=== PATIENT | male | born 1940 | race Caucasian/White ===

== ENCOUNTER 2016-10-09 10:55 | Inpatient (IN) | payer OTHER ==
[2016-06-02 12:49] VITALS: Ht 177.8 cm; Wt 62.6 kg
[~2016-10-09] VITALS: Ht 177.8 cm; Wt 62.6 kg
[2016-10-09] VITALS (7 sets, daily range): BP systolic 131–198; BP diastolic 76–126; PULSE 71–117; RESP 17–20; TEMP 97.2–98.3; O2SAT 98–100
[~2016-10-09 10:55] MED LIST: ACET-2165 PO; ALPR0.5T96 PO; ATEN100T44 PO; BACL10TA PO; BETH25TA10 PO; CAPT25TA3 PO; CAPT50TA PO; CAT.1 PO; CAT.2 PO; CYM30 PO; DOCU250C PO; FINA5TAB3 PO; GLUXR500 PO; HYDR-1189 PO; HYDR50TA3 PO; LEVO500T20 PO; METO10TA3 PO; NPH,100V; PRO40 PO; SENN-153 PO; STA120 PO; TAMS-11 PO
[2016-10-09] MEDS ORDERED: NACL 0.9% 1,000 ML IV SCH (11:27)
--- NOTE | 2016-10-09 11:27 | NUR ---
Patient to ER bed 01 to gown for evaluation. Side rails up.
[2016-10-09] MEDS ORDERED: cefTRIAXone 1 GM IVPB PREMIX 50 ML IV ONE (11:30)
--- NOTE | 2016-10-09 11:49 | NUR ---
Placed on alarm security or surveillance monitor, blood pressure machine and pulse oximeter. To gown for exam. Side rails up.
--- NOTE | 2016-10-09 11:50 | NUR ---
# 20 gauge angiocath placed to RAC. Use of asceptic technique. Opsite placed over site. Blood return noted. Blood for lab drawn from site. Flushed with 10 cc of normal saline. No evidence of infiltration noted. Patient tolerated well.
--- NOTE | 2016-10-09 11:51 | NUR ---
ER at bedside examining patient.
--- NOTE | 2016-10-09 11:52 | NUR ---
brought in by his ,per his ,pt has difficulty urination,intermittent hallucination for 3 or 4 days. pt current awake,alert,oriented x4. no neuro deficit noted. no acute distress. unable to urinate.
[2016-10-09 11:59] LABS: BASOPHILS % (AUTO) 1.3 % (0.0-2.0); EOSINOPHILS # (AUTO) 0.1 K/uL (0.0-0.4); EOSINOPHILS % (AUTO) 2.1 % (0.0-4.0); HEMOGLOBIN 14.5 g/dL (14.0-18.0); LYMPHOCYTES % (AUTO) 30.6 % (20.5-51.5); MEAN CORPUSCULAR HEMOGLOBIN 30 pg (27-31); MEAN CORPUSCULAR HGB CONC 33 % (32-36); MEAN CORPUSCULAR VOLUME 90 fL (79.0-98.0); MONOCYTES # (AUTO) 0.3 K/uL (0.0-1.0); MONOCYTES % (AUTO) 9.4 % (1.7-9.3); NEUTROPHILS # (AUTO) 1.9 K/uL (1.8-7.7); NEUTROPHILS % (AUTO) 56.6 % (40.0-70.0); PLATELET COUNT (AUTO) 170 K/uL (130-430); RED BLOOD CELL COUNT(AUTO) 4.91 MIL/uL (4.2-6.2); RED CELL DISTRIBUTION WIDTH 11.5 % (9.0-15.0); WHITE BLOOD COUNT (AUTO) 3.4 K/uL (4.8-10.8)
--- NOTE | 2016-10-09 12:02 | NUR ---
# 16 FR Nieves catheter with use of sterile technique. Immediate return of cc urine noted. Bedside drainage bag placed below level of bladder. Urine sample collected and sent to lab. Pt tolerated procedure . pt unable to urinate.
[2016-10-09 12:12] LABS: ANION GAP 3 (5-15); CALCIUM 8.7 mg/dL (8.4-11.0); CHLORIDE 100 mmol/L (98-107); CREATININE 1.03 mg/dL (0.55-1.30); GLUCOSE 167 mg/dL (70-99); POTASSIUM 3.7 mmol/L (3.5-5.1); SODIUM SERUM 137 mmol/L (136-145); UREA NITROGEN, BLOOD 15 mg/dL (8-21)
[2016-10-09 12:17] LABS: ALANINE AMINOTRANSFERASE 18 U/L (12-78); ALBUMIN 3.7 g/dL (3.4-4.8); ASPARTATE AMINOTRANSFERASE 17 U/L (10-37); TOTAL BILIRUBIN 0.9 mg/dL (0.0-1.0); TOTAL PROTEIN, SERUM 6.8 g/dL (6.4-8.3)
[2016-10-09 12:20] LABS: BILIRUBIN,URINE NEGATIVE (NEGATIVE); BLOOD, URINE 1+ (NEGATIVE); CLARITY/URINE CLEAR (CLEAR); COLOR,URINE YELLOW (YELLOW); GLUCOSE,URINE 2+ (NEGATIVE); KETONES,URINE TRACE (NEGATIVE); LEUKOCYTE ESTERASE ,URINE NEGATIVE (NEGATIVE); NITRITE, URINE NEGATIVE (NEGATIVE); PH,URINE 5.5 (5.0-8.0); PROTEIN URINE 1+ (NEGATIVE); UROBILINOGEN,URINE 0.2 (0.2-1.0)
[2016-10-09 12:33] LABS: BACTERIA,URINE FEW /HPF (None Seen); WBC,URINE 0-3 /HPF (0-3)
--- NOTE | 2016-10-09 13:30 | NUR ---
Medication reconciliation completed with information provided by patient. Any prior medication reconciliation on file was reviewed and corrected.
[2016-10-09] MEDS ORDERED: INSU10VI4 SUBCUT (13:39)
[2016-10-09] MEDS ORDERED: LACT1CAP71 PO (13:39)
--- NOTE | 2016-10-09 14:36 | NUR ---
Patient will be admitted to care of [facility] . Admitted to unit. Will go to room 120A . Belongings list completed. Summary report printed. Report will be given at bedside.
--- NOTE | 2016-10-09 14:42 | NUR ---
ADMIT NOTE Received pt from ER to the floor with a diagnosis of ALOC. Admission process initiated. patient oriented to pain management, safety and call light-teach back done.
[2016-10-09] MEDS: NACL 0.9% 1,000 ML IV SCH (15:19)
--- NOTE | 2016-10-09 15:45 | NUR ---
OPENING NOTE RECEIVED REPORT FROM KATHY SANCHEZ AT BEDSIDE. PT SPEAKS VIETNAMESE AND VERY LITTLE TRINIDADIAN, A/O X 4 AND IS COOPERATIVE AND ATTENTIVE, NO SIGN OF COGNITIVE DIMINISHMENT, ALTHOUGH HE DOES NOT LIKE TO HAVE HIS HEAD OR NECK TOUCHED. SELLERS IN PLACE AND SECURED, LAST BM WAS ON 10/07. IV IS PATENT, BP IS 161/93. DR RODRÍGUEZ NOTIFIED OF BP AND HOME MEDS, WHICH HE SAID HE WILL RECONCILE HIMSELF AND ADD ACCU-CHECKS.
[2016-10-09] MEDS ORDERED: cloNIDine HCL 0.1 MG TABLET PO PRN (16:15)
[2016-10-09] MEDS ORDERED: DOCUSATE SODIUM 100 MG CAPSULE PO PRN (16:15)
[2016-10-09] MEDS ORDERED: MORPHINE 2 MG/ML INJ. SYRINGE IVP PRN (16:15)
[2016-10-09] MEDS ORDERED: POTASSIUM CHLORIDE 10 MEQ TAB.PRT.SR PO PRN (16:15)
[2016-10-09] MEDS ORDERED: DEXTROSE 50% JECT 50 ML DISP.SYRIN IVP PRN (16:15)
[2016-10-09] MEDS ORDERED: MAGNESIUM SULFATE 50 ML IV PRN (16:15)
[2016-10-09] MEDS ORDERED: ONDANSETRON HCL 4 MG/2 ML VIAL IVP PRN (16:15)
[2016-10-09] MEDS ORDERED: ACETAMINOPHEN 325 MG TABLET PO PRN (16:15)
[2016-10-09] MEDS ORDERED: LORazepam 2 MG/ML VIAL IVP PRN (16:15)
[2016-10-09] MEDS: LISINOPRIL 10 MG TABLET (PRINIVIL) PO SCH (16:15)
[2016-10-09] MEDS ORDERED: LISINOPRIL 10 MG TABLET (PRINIVIL) PO ONE (17:00)
--- NOTE | 2016-10-09 17:00 | NUR ---
matheus performed bs 131 at 1700. I entered the information on the EMAR and it indicated my entry, yet it is still pinkk as though it wasn't performed and appears to have not registered properly
--- NOTE | 2016-10-09 17:15 | NUR ---
ROUNDS PT IS SITTING UP IN BED AND LOOKS CONFUSED. A CITIZEN OF [place]-SPEAKING NURSE SPOKE TO HIM AND DETERMINED PT DID NOT KNOW WHERE HE WAS OR HOW HE ENDED UP IN THE HOSPITAL. WE EDUCATED PT AND ENSURED HE WAS CALM AND COMFORTABLE BEFORE STEPPING AWAY. WILL CONTINUE TO MONITOR
--- NOTE | 2016-10-09 19:15 | NUR ---
CLOSING NOTE PT SITTING UP IN BED, WATCHING TELEVISION. IV PATENT, SELLERS IN PLACE AND SECURED TO HIS INNER THIGH. REPORT ENDORSED TO KATHY TURNER
--- NOTE | 2016-10-09 19:45 | NUR ---
PM ASSESSMENT: RECEIVED BEDSIDE REPORT AT 1925HR FROM KATHY JULIEN. ASSESSED THIS TIME.AWAKE, ORIENTED X2, FORGETFUL OF TIME AND SPECIFIC PLACE, IN BED ,ANDORRAN SPEAKING,UNDERSTANDS LITTLE CZECH.TRYING TO GET OUT OFF BED DUE TO SLIGHT CONFUSION.ALARM BED ON.INSTRUCTED ON FALL PRECAUTION.,HOW TO USE CALL LIGHT WHICH IS AT WITHIN REACH,NEEDS FREQUENT REMINDERS.BED IN LOW POSITION.TACHY CARDEIC. BP ELEVATED.197/127 LEFT UPPER ARM,198/126 .CHANGED BP MACHINE. PATIENT DENIES PAIN.WILL GIVE BP MEDS AND MONITOR CLOSELY.
[2016-10-09] MEDS: ATENOLOL 50 MG TABLET (TENORMIN) PO SCH (20:46)
--- NOTE | 2016-10-09 20:50 | NUR ---
ALL DUE PO MEDS WITH PRN BP MEDS GIVEN. WILL MONITOR CLOSELY.
[2016-10-09] MEDS: HEPARIN SODIUM,PORCINE 5000 UNITS/ML VIAL SUBCUT SCH (20:51)
[2016-10-09] MEDS: BETHANECHOL CHLORIDE 25 MG TABLET (URECHOLINE) PO SCH (20:53)
[2016-10-09] MEDS: ALPRAZolam 0.25 MG TABLET PO SCH (20:54)
[2016-10-09] MEDS: TAMSULOSIN HCL 0.4 MG CAP PO SCH (20:54)
[2016-10-09] MEDS ORDERED: ZOLPIDEM TARTRATE 5 MG TABLET PO PRN (21:00)
[2016-10-09] MEDS: INSULIN ASPART 100 UNITS/ML, 10 ML VIAL (NovoLOG) SUBCUT PRN (21:07)
--- NOTE | 2016-10-09 22:00 | NUR ---
PATIENT QUITELY WATCHING TV SHOWS. NO DISTRESS.
--- NOTE | 2016-10-09 23:00 | NUR ---
PATIENT SLEEPING ON HIS RIGHT SIDE. NO DISTRESS.
--- NOTE | 2016-10-09 23:30 | NUR ---
BLOOD PRESSURES WITHIN NORMAL LIMITS.
--- NOTE | 2016-10-10 02:00 | NUR ---
PATIENT CONTINUE TO SLEEP.
--- NOTE | 2016-10-10 03:30 | NUR ---
PATIENT WOKE UP. ASKED WATER TO DRINK.
[2016-10-10 03:43] VITALS: BP 127/72; PULSE 60; RESP 18; TEMP 96.8; O2SAT 99
--- NOTE | 2016-10-10 06:00 | NUR ---
BLOOD SUGAR 88MG.DL. APPLE JUICE WITH SUGAR GIVEN TO DRINK.
[2016-10-10] MEDS: NACL 0.9% 1,000 ML IV SCH ×2 (06:15→17:57)
[2016-10-10 06:48] LABS: ANION GAP 2 (5-15); CALCIUM 7.9 mg/dL (8.4-11.0); CHLORIDE 107 mmol/L (98-107); CREATININE 0.79 mg/dL (0.55-1.30); GLUCOSE 101 mg/dL (70-99); POTASSIUM 3.6 mmol/L (3.5-5.1); SODIUM SERUM 139 mmol/L (136-145); UREA NITROGEN, BLOOD 13 mg/dL (8-21)
--- NOTE | 2016-10-10 06:50 | NUR ---
CLOSING: MORE ORIENTED THIS AM. ALL NEEDS WERE ATTENDED. NO ACUTE DISTRESS. VITAL ARE STABLE THIS AM. IVF INFUSING WELL. SELLERS DRAINING WELL. NO ACUTE DISTRESS WHOLE SHIFT.
[2016-10-10 07:04] LABS: EOSINOPHILS # (AUTO) 0.1 K/uL (0.0-0.4); EOSINOPHILS % (AUTO) 1.5 % (0.0-4.0); HEMATOCRIT 37.9 % (36-54); HEMOGLOBIN 12.7 g/dL (14.0-18.0); LYMPHOCYTES % (AUTO) 25.9 % (20.5-51.5); MEAN CORPUSCULAR HEMOGLOBIN 30 pg (27-31); MEAN CORPUSCULAR HGB CONC 34 % (32-36); MEAN CORPUSCULAR VOLUME 90 fL (79.0-98.0); MONOCYTES # (AUTO) 0.4 K/uL (0.0-1.0); MONOCYTES % (AUTO) 9.6 % (1.7-9.3); NEUTROPHILS # (AUTO) 2.5 K/uL (1.8-7.7); PLATELET COUNT (AUTO) 135 K/uL (130-430); RED CELL DISTRIBUTION WIDTH 11.9 % (9.0-15.0)
--- NOTE | 2016-10-10 07:59 | NUR ---
AM ROUNDS Pt A/Ox3 at this time...Denies pain or discomfort..Pt sitting up in bed eating breakfast..FC draining well via gravity..IVF infusing well to RAC...Call light/phone w/in reach...Will cont to monitor
--- NOTE | 2016-10-10 09:20 | NUR ---
Uro Consult: for Diana Mancuso, regarding urinary retention, ordered by Dr. Ortiz, spoke with
--- NOTE | 2016-10-10 09:22 | NUR ---
Nutrition Update Sergio Scale 16 noted. Pt admitted for ALOC. Diet: [facility] BMI: 19.8 kg/m2 RD to follow per nutrition care standards.
--- NOTE | 2016-10-10 09:45 | NUR ---
PT AMBULATING WITH PHYSICAL THERAPY
[2016-10-10] MEDS: ALPRAZolam 0.25 MG TABLET PO SCH ×3 (09:55→22:22)
[2016-10-10] MEDS: FINASTERIDE 5 MG TABLET (PROSCAR) PO SCH (09:55)
[2016-10-10] MEDS: DULoxetine HCL 30 MG CAPSULE.DR (CYMBALTA) PO SCH (09:55)
--- NOTE | 2016-10-10 09:55 | NUR ---
Uro Consult: Dr. Salgado's office called to say he will not be taking consult, because he is not contracted with the patient's insurance.
[2016-10-10] MEDS: HEPARIN SODIUM,PORCINE 5000 UNITS/ML VIAL SUBCUT SCH ×2 (09:56→22:27)
[2016-10-10] MEDS: LISINOPRIL 10 MG TABLET (PRINIVIL) PO SCH (09:56)
[2016-10-10] MEDS: BETHANECHOL CHLORIDE 25 MG TABLET (URECHOLINE) PO SCH ×3 (09:56→22:22)
--- NOTE | 2016-10-10 10:47 | NUR ---
ROUNDS PT STABLE..NO CHANGES...WILL CONT TO MONITOR
[2016-10-10 11:26] VITALS: BP 149/80; PULSE 72; RESP 19; TEMP 97.5; O2SAT 96
[2016-10-10] MEDS: INSULIN ASPART 100 UNITS/ML, 10 ML VIAL (NovoLOG) SUBCUT PRN ×3 (12:07→22:29)
--- NOTE | 2016-10-10 14:15 | NUR ---
ROUNDS PT STABLE...SITTING UP IN BED WATCHING TV...WILL CONT TO MONITOR
[2016-10-10 15:32] VITALS: BP 133/77; PULSE 65; RESP 19; TEMP 97.9; O2SAT 96
--- NOTE | 2016-10-10 16:05 | NUR ---
SELLERS CATHETER REMOVED PT MD SCHWARTZ 10cc REMOVED FROM [place]..CATHETER REMOVED WITH TIP INTACT..PT TOLERATED WELL...
--- NOTE | 2016-10-10 16:58 | NUR ---
ROUNDS ASKING TO GO HOME, PT BECOMING AGITATED...INFORMED PT OF PLAN OF CARE...PT UNDERSTOOD AND IS CALM AT THIS TIME..WILL CONT TO MONITOR
[2016-10-10 19:35] VITALS: BP 154/98; PULSE 67; RESP 20; TEMP 98.4; O2SAT 97
--- NOTE | 2016-10-10 19:36 | NUR ---
Initial PM Note Pt was received awake and oriented to his name only. Pt is Faroese Speaking and no c/o pain or discomfort at this time. No acute distress noted. Skin is warm and dry to touch. No signs or symptoms of hypoglycemia or hyperglycemia noted. IVF is infusing well in RAC. Fall precautions are in place. Call light is with pt and bed alarm is on. Three side rails are up. Bed is in the lowest and locked positions. Will continue to monitor pt.
--- NOTE | 2016-10-10 19:37 | NUR ---
SLEEPING PT COMFORTABLE...BED ALARM ACTIVATED...WILL CONT TO MONITOR
[2016-10-10] MEDS: TAMSULOSIN HCL 0.4 MG CAP PO SCH (22:22)
[2016-10-10] MEDS: ATENOLOL 50 MG TABLET (TENORMIN) PO SCH (22:23)
--- NOTE | 2016-10-10 22:29 | NUR ---
Blood Sugar Accucheck 251 and 6 units NovoLog Insulin given SQ. Pt was offered HS snacks and he declined. Skin remains warm and dry to touch. Will continue to monitor pt.
[2016-10-11 00:15] VITALS: BP 188/96; PULSE 74; RESP 20; TEMP 98; O2SAT 95
--- NOTE | 2016-10-11 01:30 | NUR ---
Ambulation Pt attempted to get out of bed without calling for assistance. Pt insisted on ambulating to the bathroom and appears confused. Pt was reoriented to his room and surrounding. Pt ambulated to the bathroom and back to bed with the assistance of RETAIL LOSS PREVENTION OFFICER. Gait slow and steady. Pt expelled lots of gas in the toilet, but no bowel movement.
[2016-10-11] MEDS: NACL 0.9% 1,000 ML IV SCH (01:43)
--- NOTE | 2016-10-11 03:30 | NUR ---
Rounds Pt is sleeping comfortably in bed.
[2016-10-11 04:00] VITALS: BP 148/74; PULSE 68; RESP 18; TEMP 97
--- NOTE | 2016-10-11 05:00 | NUR ---
Rounds Pt is sleeping quietly in bed. No acute distress noted. IVF is infusing well. Call light is with pt and bed alarm is on.
--- NOTE | 2016-10-11 06:33 | NUR ---
Closing Note Pt is resting comfortably in bed at this time. All pt's needs were attended to. No fall or injury noted this shift. Accucheck 117 this AM and no sliding scale Insulin needed. Skin remains warm and dry to touch. Will endorse to day shift nurse.
[2016-10-11 06:51] LABS: CALCIUM 7.9 mg/dL (8.4-11.0); CHLORIDE 104 mmol/L (98-107); CREATININE 0.77 mg/dL (0.55-1.30); GLUCOSE 92 mg/dL (70-99); POTASSIUM 3.5 mmol/L (3.5-5.1); SODIUM SERUM 135 mmol/L (136-145); UREA NITROGEN, BLOOD 15 mg/dL (8-21)
[2016-10-11 06:57] LABS: HEMATOCRIT 38.2 % (36-54); MEAN CORPUSCULAR HEMOGLOBIN 31 pg (27-31); MEAN CORPUSCULAR HGB CONC 34 % (32-36); MEAN CORPUSCULAR VOLUME 90 fL (79.0-98.0); PLATELET COUNT (AUTO) 127 K/uL (130-430); RED BLOOD CELL COUNT(AUTO) 4.24 MIL/uL (4.2-6.2)
[2016-10-11 07:02] LABS: ANION GAP < 3 (5-15)
[2016-10-11 07:08] LABS: WHITE BLOOD COUNT (AUTO) 3.1 K/uL (4.8-10.8)
--- NOTE | 2016-10-11 07:14 | NUR ---
Report Bedside report given to Nurses Ronna.
[2016-10-11 08:25] VITALS: BP 161/90; PULSE 66; RESP 12; TEMP 98; O2SAT 96
--- NOTE | 2016-10-11 08:41 | NUR ---
OPENING NOTE PATIENT RESTING COMFORTABLY, NO COMPLAINTS OF PAIN AT THIS TIME. NO NOTABLE SIGNS OF DISTRESS AT THIS TIME. BED IN LOWEST POSITION, CALL LIGHT WITHIN REACH, AND SIDE RAILS ARE UP FOR SAFETY. WILL CONTINUE TO MONITOR FOR CHANGES IN STATUS.
--- NOTE | 2016-10-11 08:48 | NUR ---
NOTE SPOKE WITH DR. RODRÍGUEZ REGARDING PATIENTS INSURANCE NOT ACCEPTED BY DR. GARCIA. ORDERS WERE GIVEN IF NO OUTPUT, REINSERT THE SELLERS CATHETER.
[2016-10-11] MEDS ORDERED: HYDR25TA4 PO (09:01)
[2016-10-11] MEDS ORDERED: ATEN100T44 PO (09:01)
[2016-10-11] MEDS ORDERED: ASPI-1063 PO (09:01)
[2016-10-11] MEDS ORDERED: CAPT50TA3 PO (09:01)
[2016-10-11] MEDS: BETHANECHOL CHLORIDE 25 MG TABLET (URECHOLINE) PO SCH (09:11)
[2016-10-11] MEDS: DULoxetine HCL 30 MG CAPSULE.DR (CYMBALTA) PO SCH (09:12)
[2016-10-11] MEDS: LISINOPRIL 10 MG TABLET (PRINIVIL) PO SCH (09:12)
[2016-10-11] MEDS: FINASTERIDE 5 MG TABLET (PROSCAR) PO SCH (09:13)
[2016-10-11] MEDS: ALPRAZolam 0.25 MG TABLET PO SCH (09:13)
[2016-10-11] MEDS: HEPARIN SODIUM,PORCINE 5000 UNITS/ML VIAL SUBCUT SCH (09:14)
[2016-10-11 10:16] LABS: BAND % (MANUAL) 0 % (0-6)
[2016-10-11 10:17] LABS: ATYPICAL LYMPHOCYTES % 0 % (0-0); BASOPHILS % (MANUAL) 0 % (0-2); EOSINOPHILS % (MANUAL) 2 % (0-7); LYMPHOCYTES % (MANUAL) 37 % (20-46); MONOCYTES % (MANUAL) 11 % (0-11)
--- NOTE | 2016-10-11 11:00 | NUR ---
Discharge Medications Spoke with Dr. Ortiz in regards to d/c medications sent via e-prescription, wrong pharmacy was entered. Spoke with and received the correct pharmacy name and number, changed it on his file, spoke with Dr. Ortiz and he stated to call his office and speak with Maryanne and fax over the medication list so he can order it from his office, faxed over and spoke with Maryanne who received it and will take care of it. Charge nurse aware and assistant professor of nursing aware.
--- NOTE | 2016-10-11 11:10 | NUR ---
1000 NOTE PATIENT RESTING COMFORTABLY AT THIS TIME. NO COMPLAINTS OF PAIN AT THIS TIME. NO NOTABLE SIGNS OF DISTRESS AT THIS TIME. PATIENTS BED IN LOWEST POSITION, CALL LIGHT WITHIN REACH, AND 2 SIDE RAILS ARE UP FOR SAFETY. WILL CONTINUE TO MONITOR PATIENT FOR CHANGES IN STATUS.
[2016-10-11 11:49] VITALS: BP 167/94; PULSE 61; RESP 18; TEMP 96.4; O2SAT 99
--- NOTE | 2016-10-11 13:07 | NUR ---
1200 NOTE PATIENT RESTING COMFORTABLY AT THIS TIME, FAMILY AT BEDSIDE. NO COMPLAINTS OF PAIN AT THIS TIME. NO NOTABLE SIGNS OF DISTRESS AT THIS TIME. PATIENTS BED IN LOWEST POSITION, CALL LIGHT WITHIN REACH, AND 2 SIDE RAILS ARE UP FOR SAFETY. WILL CONTINUE TO MONITOR PATIENT FOR CHANGES IN STATUS.
--- NOTE | 2016-10-11 13:26 | NUR ---
DISCHARGE SPOKE WITH FAMILY MEMBER REGARDING DISCHARGE, PATIENTS FAMILY WILL COME TO FIELD CROP FARM WORKER THE PATIENT, HIS BELONGINGS, AND GO THROUGH THE TEACHING OF DISCHARGE PAPERWORK WITH THE PATIENT.
[2016-10-11 13:29] VITALS: BP 167/94; PULSE 61; RESP 18; TEMP 96.4; O2SAT 99
--- NOTE | 2016-10-11 13:47 | NUR ---
PHYSICAL THERAPY CO-SIGN The Physical Therapy Progress Notes documented by Cut File Clerk have been reviewed. I CONCUR W/GUIDE DOG TRAINER NOTE; CONT PER TX PLAN Reviewed/Co-Signed by: Kimi Stephenson PT Documentation Done by: FIGUEROA NARAYAN GUIDE DOG TRAINER Addendum: 10/11/16 at 1347 by Kimi Stephenson PT Amended: Links added.
--- NOTE | 2016-10-11 14:42 | NUR ---
DISCHARGE PATIENT IS DISCHARGED, TRANSITIONAL CARE INSTRUCTIONS REVIEWED, PATIENT AND FAMILY VERBALIZED UNDERSTANDING. IS AT BEDSIDE, TRANSLATING NECESSARY. PATIENT BELONGINGS PLACED IN BAGS, AND GIVEN TO FAMILY TO TAKE HOME. PATIENT IS ALERT, AND IS LEAVING IN STABLE CONDITION. IV IS REMOVED, ID BAND IS REMOVED. PATIENT IS PLACED IN WHEELCHAIR, AND WHEELED TO FRONT LOBBY.
--- NOTE | 2016-10-11 16:34 | NUR ---
DISCHARGE PATIENT, WITH HIS , WHEELED OUT TO FRONT LOBBY. ALL BELONGINGS WENT WITH THE PATIENT. IV REMOVED, ID BAND REMOVED.
--- NOTE | 2016-10-14 14:18 | NUR ---
Discharge Follow Up Phone Calls: Ad Trafficker called and attempted to follow up with pt ([phone]) on 10/13/16, but there was no answer and no voice mail. HOOP RIVETING MACHINE OPERATOR HELPER called pt today and pt's , Liberty, answered the phone. Pt's states that pt is doing well; pt's prescriptions have been filled; there are no questions regarding discharge or medication instructions; pt has a PCP follow up appointment scheduled for 10/18/16; pt checks his blood sugar as directed by PCP. Pt's did not express any other needs or concerns and denied the need for additional follow up at this time. No further follow up phone calls required at this time.
== END 2016-10-11 16:34 | disposition home or self-care (01) | DRG 725 ==
LOC: SED 10:55 → SMU 14:10
PROVIDERS: ADMIT General Practice; ATTEND General Practice
DX: N40.1 Benign prostatic hyperplasia with lower urinary tract symptoms (principal); G93.41 Metabolic encephalopathy; E83.51 Hypocalcemia; I10 Essential (primary) hypertension; D72.819 Decreased white blood cell count, unspecified; R33.8 Other retention of urine; E11.65 Type 2 diabetes mellitus with hyperglycemia; F32.9 Major depressive disorder, single episode, unspecified; F41.9 Anxiety disorder, unspecified; M10.9 Gout, unspecified; Z88.6 Allergy status to analgesic agent; Z79.899 Other long term (current) drug therapy
CPT/HCPCS: 36415; 70450-TC; 71010; 80048; 80053; 81000-TC; 82962; 83605; 83735-TC; 85007; 85025; 85027; 85610-TC; 85730-TC; 87040-TC; 93005; 96365; 97110-GP; 97116-GP; 97530-GP; 99291; J0696; J1644; J1815; J3475; J7030

== ENCOUNTER 2017-01-22 19:24 | Emergency (ER) | payer OTHER ==
[~2017-01-22] VITALS: Ht 180.3 cm; Wt 61.2 kg
[~2017-01-22 19:24] MED LIST changes: -ACET-2165 PO; +ASPI-1063 PO; -BACL10TA PO; -CAPT25TA3 PO; +CAPT50TA3 PO; -CAT.1 PO; -CAT.2 PO; -DOCU250C PO; -GLUXR500 PO; -HYDR-1189 PO; +HYDR25TA4 PO; -HYDR50TA3 PO; +INSU10VI4 SUBCUT; +LACT1CAP71 PO; -LEVO500T20 PO; -METO10TA3 PO; -NPH,100V; -PRO40 PO; -SENN-153 PO; -STA120 PO
[2017-01-22 19:35] VITALS: BP_SYST 143
--- NOTE | 2017-01-22 19:43 | NUR ---
Patient to ER bed 3 to gown for evaluation. Side rails up. Report given to KATHY BENTLEY.
--- NOTE | 2017-01-22 19:45 | NUR ---
Patient AAO x4, moroccan speaking, family at bedside translating. Patient c/o right arm pain 6/10, right hip pain 6/10, and hematoma with abrasion to right head status post fall. Family states he was walking with his walker and legs "gave out or something", family reports patient has been "more confused and stubborn the past couple of weeks," patient has an existing appointment with patient's doctor. Patient is diabetic and family states no insulin was given today due to patient blood sugar levels remaining low enough to not need insulin. Patient able to follow commands, unable to move right hip without pain, able to lift both arms. Vital signs stable, no acute distress noted. Will continue to monitor.
--- NOTE | 2017-01-22 19:46 | NUR ---
Patient refusing ice-pack, at this time.
--- NOTE | 2017-01-22 19:50 | NUR ---
ER at bedside examining patient.
[2017-01-22] MEDS ORDERED: NACL 0.9% 1,000 ML IV ONE (20:01)
--- NOTE | 2017-01-22 20:18 | NUR ---
Lab at bedside.
[2017-01-22 20:41] LABS: BASOPHILS % (AUTO) 0.7 % (0.0-2.0); HEMATOCRIT 40.1 % (36-54); HEMOGLOBIN 13.5 g/dL (14.0-18.0); LYMPHOCYTES # (AUTO) 0.7 K/uL (1.0-5.5); LYMPHOCYTES % (AUTO) 16.6 % (20.5-51.5); MEAN CORPUSCULAR HEMOGLOBIN 30 pg (27-31); MEAN CORPUSCULAR HGB CONC 34 % (32-36); MEAN CORPUSCULAR VOLUME 90 fL (79.0-98.0); MONOCYTES # (AUTO) 0.3 K/uL (0.0-1.0); MONOCYTES % (AUTO) 6.5 % (1.7-9.3); NEUTROPHILS # (AUTO) 3.1 K/uL (1.8-7.7); NEUTROPHILS % (AUTO) 75.2 % (40.0-70.0); PLATELET COUNT (AUTO) 134 K/uL (130-430); RED BLOOD CELL COUNT(AUTO) 4.45 MIL/uL (4.2-6.2); RED CELL DISTRIBUTION WIDTH 12.1 % (9.0-15.0); WHITE BLOOD COUNT (AUTO) 4.1 K/uL (4.8-10.8)
[2017-01-22 20:45] LABS: CALCIUM 8.5 mg/dL (8.4-11.0); CHLORIDE 94 mmol/L (98-107); POTASSIUM 5.1 mmol/L (3.5-5.1); SODIUM SERUM 129 mmol/L (136-145); UREA NITROGEN, BLOOD 9 mg/dL (8-21)
[2017-01-22 20:48] LABS: INR 1.1 (0.80-1.20); PROTHROMBIN TIME 11.9 SECS (9.5-12.5)
--- NOTE | 2017-01-22 20:56 | NUR ---
Patient back from CT.
[2017-01-22 20:58] LABS: ALANINE AMINOTRANSFERASE 32 U/L (12-78); ALBUMIN 3.4 g/dL (3.4-4.8); ASPARTATE AMINOTRANSFERASE 20 U/L (10-37); TOTAL BILIRUBIN 0.9 mg/dL (0.0-1.0)
[2017-01-22 21:00] LABS: ANION GAP < 3 (5-15)
[2017-01-22 21:05] LABS: GLUCOSE 413 mg/dL (70-99)
[2017-01-22] MEDS ORDERED: KETOROLAC TROMETHAMINE 15 MG VIAL IVP ONE (21:45)
[2017-01-22] MEDS ORDERED: INSULIN REGULAR, HUMAN 10 UNITS/0.1 ML INJ IVP ONE (21:45)
--- NOTE | 2017-01-22 22:00 | NUR ---
Patient resting quietly. No acute distress noted. Vital signs within normal range.
--- NOTE | 2017-01-22 23:15 | NUR ---
Anais Araujo md informed.
[2017-01-22 23:35] LABS: BILIRUBIN,URINE NEGATIVE (NEGATIVE); BLOOD, URINE NEGATIVE (NEGATIVE); CLARITY/URINE CLEAR (CLEAR); COLOR,URINE YELLOW (YELLOW); GLUCOSE,URINE 3+ (NEGATIVE); KETONES,URINE NEGATIVE (NEGATIVE); LEUKOCYTE ESTERASE ,URINE NEGATIVE (NEGATIVE); NITRITE, URINE NEGATIVE (NEGATIVE); PH,URINE 6.5 (5.0-8.0); PROTEIN URINE NEGATIVE (NEGATIVE)
[2017-01-22 23:40] VITALS: BP_SYST 142
--- NOTE | 2017-01-22 23:40 | NUR ---
Patient given written and verbal discharge instructions and verbalizes understanding. ER MD discussed with patient the results and treatment provided. Patient in stable condition. ID arm band removed. IV catheter removed intact and dressing applied, no active bleeding. Rx of tramadol given. Patient educated on pain management and to follow up with PMD. Pain Scale 2/10, tolerable by patient. Opportunity for questions provided and answered.
[2017-01-22 23:41] LABS: BACTERIA,URINE FEW /HPF (None Seen); RBC,URINE 0-3 /HPF (0-3); WBC,URINE 0-3 /HPF (0-3)
--- NOTE | 2017-01-23 09:25 | NUR ---
Patient was contacted regarding radiology discrepancy of high density focus in the right parietal which may represent intercranial bleeding. Spoke with Liberty who states that she will bring the patient in as soon as her grandson is able to help get the patient in the car.
== END 2017-01-22 23:40 | disposition home or self-care (01) ==
LOC: SED 19:24
DX: S76.911A Strain of unspecified muscles, fascia and tendons at thigh level, right thigh, initial encounter (principal); S00.93XA Contusion of unspecified part of head, initial encounter; E11.65 Type 2 diabetes mellitus with hyperglycemia; M16.11 Unilateral primary osteoarthritis, right hip; I10 Essential (primary) hypertension; F41.9 Anxiety disorder, unspecified; M10.9 Gout, unspecified; R51 Headache; Z79.4 Long term (current) use of insulin; Z86.59 Personal history of other mental and behavioral disorders; Z88.5 Allergy status to narcotic agent; Z79.82 Long term (current) use of aspirin; W19.XXXA Unspecified fall, initial encounter; Y93.89 Activity, other specified; Y92.89 Other specified places as the place of occurrence of the external cause; Y99.8 Other external cause status
CPT/HCPCS: 36415; 70450; 71010; 72170; 73552; 80053; 81000; 83605; 84484; 85025; 85610; 85730; 96361; 96374; 96375; 99285; J1815; J1885

== ENCOUNTER 2017-01-23 10:48 | Emergency (ER) | payer OTHER ==
[~2017-01-23] VITALS: Ht 180.3 cm; Wt 59.0 kg
[2017-01-23 11:10] VITALS: BP_SYST 166
--- NOTE | 2017-01-23 11:15 | NUR ---
Patient to ER bed 3 to gown for evaluation. Side rails up.
--- NOTE | 2017-01-23 11:41 | NUR ---
ER Dr. MCCLELLAN at bedside examining patient.
[2017-01-23 12:30] LABS: ANION GAP 5 (5-15); BASOPHILS % (AUTO) 0.1 % (0.0-2.0); CALCIUM 8.6 mg/dL (8.4-11.0); CHLORIDE 98 mmol/L (98-107); CREATININE 1.09 mg/dL (0.55-1.30); GLUCOSE 285 mg/dL (70-99); HEMATOCRIT 40.5 % (36-54); HEMOGLOBIN 13.5 g/dL (14.0-18.0); LYMPHOCYTES # (AUTO) 0.4 K/uL (1.0-5.5); MEAN CORPUSCULAR HEMOGLOBIN 30 pg (27-31); MEAN CORPUSCULAR HGB CONC 33 % (32-36); MEAN CORPUSCULAR VOLUME 90 fL (79.0-98.0); MONOCYTES # (AUTO) 0.3 K/uL (0.0-1.0); MONOCYTES % (AUTO) 3.6 % (1.7-9.3); NEUTROPHILS % (AUTO) 92.3 % (40.0-70.0); PLATELET COUNT (AUTO) 116 K/uL (130-430); POTASSIUM 4.4 mmol/L (3.5-5.1); RED BLOOD CELL COUNT(AUTO) 4.53 MIL/uL (4.2-6.2); RED CELL DISTRIBUTION WIDTH 12.5 % (9.0-15.0); SODIUM SERUM 133 mmol/L (136-145); UREA NITROGEN, BLOOD 23 mg/dL (8-21)
--- NOTE | 2017-01-23 12:30 | NUR ---
# 20 gauge angiocath placed to LEFT A/C. Use of aseptic technique. Opsite placed over site. Blood return noted. Flushed with 10 cc of normal saline. No evidence of infiltration noted. Patient tolerated well.
[2017-01-23 12:33] LABS: INR 1.1 (0.80-1.20); PROTHROMBIN TIME 12.4 SECS (9.5-12.5)
[2017-01-23 12:35] LABS: ALANINE AMINOTRANSFERASE 31 U/L (12-78); ALBUMIN 3.6 g/dL (3.4-4.8); ASPARTATE AMINOTRANSFERASE 24 U/L (10-37); LIPASE 51 U/L (73-393); TOTAL PROTEIN, SERUM 6.4 g/dL (6.4-8.3)
[2017-01-23 12:36] LABS: WHITE BLOOD COUNT (AUTO) 9.7 K/uL (4.8-10.8)
[2017-01-23 13:02] LABS: BILIRUBIN,URINE NEGATIVE (NEGATIVE); CLARITY/URINE SL HAZY (CLEAR); COLOR,URINE AMBER (YELLOW); GLUCOSE,URINE 3+ (NEGATIVE); KETONES,URINE 1+ (NEGATIVE); LEUKOCYTE ESTERASE ,URINE NEGATIVE (NEGATIVE); NITRITE, URINE NEGATIVE (NEGATIVE); PROTEIN URINE 1+ (NEGATIVE)
[2017-01-23 13:04] LABS: BLOOD, URINE TRACE (NEGATIVE)
[2017-01-23 13:07] LABS: RBC,URINE 0-3 /HPF (0-3); WBC,URINE NONE SEEN /HPF (0-3)
[2017-01-23 13:08] LABS: BACTERIA,URINE RARE /HPF (None Seen); MUCUS,URINE 1+ /LPF (None Seen)
[2017-01-23] MEDS ORDERED: ONDANSETRON HCL 4 MG/2 ML VIAL IVP ONE (15:15)
[2017-01-23] MEDS ORDERED: MORPHINE 2 MG/ML INJ. SYRINGE IVP ONE (15:15)
--- NOTE | 2017-01-23 15:37 | NUR ---
MEDICATED WITH MORPHINE 2 MG IVP AND ZOFRAN 4 MG IVP ORDERED. AT BEDSIDE TO HELP WITH TRANSLATION.
[2017-01-23] MEDS ORDERED: D5/0.45 NS 1,000 ML IV ONE (16:45)
--- NOTE | 2017-01-23 17:00 | NUR ---
CALLED ICU DEPT, REPORT GIVEN TO KATHY SELLERS. PT TO BE TAKEN TO ED FIRST AT [facility].
--- NOTE | 2017-01-23 17:38 | NUR ---
Patient to be transferred to [facility]. Is being transferred due to higher level of care. Receiving facility has accepting physician and available space. ER physician has signed transfer form. Patient or responsible libertarian has agreed to transfer and signed form. Patient belongings inventoried and will be sent with patient. Copy of nursing notes, lab reports, EKG, Physicians Orders and X-rays to be sent with patient. Report called to MARLO at receiving facility. Receiving physician is DR RODRÍGUEZ. ambulance service has been called for transfer. ETA is NOW.
== END 2017-01-23 17:48 | disposition short-term general hospital (02) ==
LOC: SED 10:48
DX: S32.491A Other specified fracture of right acetabulum, initial encounter for closed fracture (principal); S06.309A Unspecified focal traumatic brain injury with loss of consciousness of unspecified duration, initial encounter; M10.9 Gout, unspecified; F41.9 Anxiety disorder, unspecified; E11.9 Type 2 diabetes mellitus without complications; I10 Essential (primary) hypertension; Z88.5 Allergy status to narcotic agent; Z79.899 Other long term (current) drug therapy; Z86.59 Personal history of other mental and behavioral disorders; Z79.4 Long term (current) use of insulin; Z79.82 Long term (current) use of aspirin; W17.89XA Other fall from one level to another, initial encounter; Y93.89 Activity, other specified; Y92.89 Other specified places as the place of occurrence of the external cause; Y99.8 Other external cause status
CPT/HCPCS: 36415; 70450; 72192; 80053; 81000; 83605; 83690; 85025; 85610; 85730; 87040; 96361; 96374; 96375; 99285; J2270; J2405